=== PATIENT | male | born 1940 | race Caucasian/White ===

== ENCOUNTER 2016-07-18 10:27 | Outpatient (CLI) | payer MEDICARE, OTHER | END 2016-07-18 10:28 | disposition home or self-care (01) | DX: D68.9 Coagulation defect, unspecified (principal) ==

== ENCOUNTER 2016-08-30 12:54 | Outpatient (CLI) | payer MEDICARE, OTHER | END 2016-08-30 12:55 | disposition home or self-care (01) | DX: D68.9 Coagulation defect, unspecified (principal) ==

== ENCOUNTER 2017-01-25 13:05 | Outpatient (CLI) | payer MEDICARE, OTHER ==
[2017-01-25 18:58] LABS: THYROID STIMULATING HORMONE 0.89 uIU/mL (0.34-5.60)
[2017-01-25 19:36] LABS: HEMOGLOBIN A1C 0.59 g/dL
[2017-01-29 20:21] LABS: ALPHA 1 GLOBULIN 0.3 g/dL (0.2-0.3); ALPHA 2 GLOBULIN 0.6 g/dL (0.5-0.9); BETA 1 GLOBULIN 0.4 g/dL (0.4-0.6); BETA 2 GLOBULIN 0.2 g/dL (0.2-0.5); GAMMA GLOBULIN 0.6 g/dL (0.8-1.7)
[2017-01-29 23:56] LABS: TEST RESULT REPORT (())
== END 2017-01-25 13:06 | disposition home or self-care (01) ==
LOC: LAB.F 13:05
PROVIDERS: ATTEND Physician Assistant
DX: G61.89 Other inflammatory polyneuropathies (principal); E11.42 Type 2 diabetes mellitus with diabetic polyneuropathy; I77.6 Arteritis, unspecified; G60.3 Idiopathic progressive neuropathy; E03.8 Other specified hypothyroidism; E53.8 Deficiency of other specified B group vitamins
CPT/HCPCS: 36415; 81599; 82607; 83036; 84155; 84165; 84207; 84443; 85651; 86334

== ENCOUNTER 2017-05-09 08:10 | Outpatient (CLI) | payer MEDICARE, OTHER ==
[2017-05-09 10:52] LABS: PARTIAL THROMBOPLASTIN TIME 26.9 secs (24.9-33.3)
[2017-05-09 10:54] LABS: ALBUMIN/GLOBULIN RATIO 1.5 (1.0-2.2); BILIRUBIN,TOTAL 1.2 mg/dL (0.2-1.0); CALCIUM 9.7 mg/dL (8.5-10.3); CREATININE 1.1 mg/dL (0.6-1.2); POTASSIUM 3.8 mmol/L (3.5-5.0); TOTAL PROTEIN 7.4 g/dL (6.7-8.2)
[2017-05-09 11:21] LABS: FOLATE 7.63 ng/mL (5.90 - >24.8)
[2017-05-10 10:06] LABS: HOMOCYSTEINE 14.1 umol/L (<11.4)
[2017-05-11 16:27] LABS: TEST RESULT REPORT
[2017-05-13 20:31] LABS: TEST RESULT REPORT
[2017-05-14 23:01] LABS: TEST RESULT REPORT
[2017-05-15 00:18] LABS: TEST RESULT REPORT
== END 2017-05-09 08:11 | disposition home or self-care (01) ==
LOC: LAB.F 08:10 → LAB 08:11
PROVIDERS: ATTEND Family Medicine
DX: I26.99 Other pulmonary embolism without acute cor pulmonale (principal); D80.1 Nonfamilial hypogammaglobulinemia; E53.8 Deficiency of other specified B group vitamins
CPT/HCPCS: 36415; 80053; 81599; 82607; 82746; 82784; 83090; 83883; 85300; 85303; 85306; 85610; 85730; 86334

== ENCOUNTER 2018-01-03 10:48 | Outpatient (CLI) | payer MEDICARE, OTHER | END 2018-01-03 10:49 | disposition home or self-care (01) | LOC: LAB.F 10:48 | PROVIDERS: ATTEND Pathology Blood Banking & Transfusion Medicine | DX: D68.9 Coagulation defect, unspecified (principal); Z79.01 Long term (current) use of anticoagulants; I26.99 Other pulmonary embolism without acute cor pulmonale | CPT/HCPCS: 85610 ==

== ENCOUNTER 2018-01-23 22:06 | Outpatient (CLI) | payer MEDICARE, OTHER | END 2018-01-23 22:07 | disposition critical access hospital (66) | LOC: EMS 22:06 | PROVIDERS: ATTEND Surgery | DX: S01.01XA Laceration without foreign body of scalp, initial encounter (principal); W18.30XA Fall on same level, unspecified, initial encounter; Y92.008 Other place in unspecified non-institutional (private) residence as the place of occurrence of the external cause | CPT/HCPCS: A0425; A0429 ==

== ENCOUNTER 2018-01-23 22:41 | Emergency (ER) | payer MEDICARE, OTHER ==
--- NOTE | 2018-01-23 23:22 | ED Physician Documentation ---
PD HPI HEAD INJURY - Stated complaint Stated Complaint: FELL - HEAD LAC - Chief complaint Chief Complaint: Trauma Hd/Nk - History obtained from History obtained from: Patient, Family (spouse (in ED at bedside)) - History of Present Illness Mechanism of head injury: Fell Where head injury occurred: Home Timing - onset: Enter time (21:15), Today Pain level now: 3 Location of injury: Back, Top Quality of pain: Pain Associated symptoms: LOC (unwitnessed, but amnestic for event (see below)), Amnesia. No: Nausea / vomiting, Neck pain Symptoms improve with: Rest Symptoms worsen with: Palpation, Movement Contributing factors: Anticoagulated, Intoxicated Recently seen: Not recently seen - Additional information Additional information: patient was walking down hallway tonight, does not remember falling but found himself on the floor. His was in adjacent room, heard him fall, and immediately checked on him. She found him to be awake and alert; his pants were down and around his ankles although he had not yet reached the bathroom. He believes he hit his head against the wall. He was unable to stand up and his became frustrated because he insisted she not call 911. Patient was thus on ground for another hour before he then said he felt he could stand; went to help him and then noticed he was bleeding from a scalp laceration and she thus called 911. Patient was agreeable to transport to hospital, and he is calm, cooperative, and pleasant on my H+P. He had martinis tonight. Review of Systems Constitutional: reports: Reviewed and negative Eyes: reports: Reviewed and negative Ears: reports: Reviewed and negative Nose: reports: Reviewed and negative Throat: reports: Reviewed and negative Cardiac: reports: Reviewed and negative Respiratory: reports: Reviewed and negative GI: reports: Reviewed and negative : denies: Incontinent Skin: reports: Laceration (s) (scalp) Musculoskeletal: reports: Neck pain, Extremity pain (right arm). denies: Back pain Neurologic: reports: Focal weakness (right arm (he insists this is not new; has been recurrent for several weeks), Head injury, LOC. denies: Generalized weakness, Numbness, Confused, Altered mental status, Headache PD PAST MEDICAL HISTORY - Past Medical History Cardiovascular: Hypertension, High cholesterol Respiratory: None Neuro: CVA Endocrine/Autoimmune: None GI: None : None HEENT: None Psych: None Musculoskeletal: None Derm: None - Past Surgical History Past Surgical History: No Ortho: Spine surgery - Present Medications Home Medications: Ambulatory Orders Medication Instructions Recorded Confirmed Enoxaparin [Lovenox] 150 mg SUBQ Q12H 01/23/18 01/23/18 Lisinopril 10 mg PO 01/23/18 Propranolol [Inderal] 20 mg PO BID 01/23/18 01/23/18 Warfarin [Coumadin] 4 mg PO 1400 01/23/18 01/23/18 - Allergies Allergies/Adverse Reactions: Allergies Allergy/AdvReac Type Severity Reaction Status Date / Time niacin Allergy Rash Verified 01/23/18 22:50 Sulfa (Sulfonamide Allergy Rash Verified 01/23/18 22:50 Antibiotics) - Social History Does the pt smoke?: No Smoking Status: Never smoker Does the pt drink ETOH?: Yes ETOH Use: Liquor Does the pt have substance abuse?: Yes Substance Use and Type: Marijuana - Immunizations Immunizations are current?: Yes - POLST Patient has POLST: No PD ED PE NORMAL - Vitals Vital signs reviewed: Yes - General General: Alert and oriented X 3, No acute distress, Well developed/nourished - HEENT HEENT: PERRL, EOMI - Cardiac Cardiac: RRR, No murmur - Respiratory Respiratory: No respiratory distress, Clear bilaterally - Abdomen Abdomen: Soft, Non tender - Derm Derm: Normal color, Warm and dry - Extremities Extremities: No tenderness to palpate, No edema - Neuro Neuro: Alert and oriented X 3, woodworking belt sander 2-12 intact, No motor deficit, No sensory deficit, Normal speech Eye Opening: Spontaneous Motor: Obeys Commands Verbal: Oriented GCS Score: 15 PD ED PE EXPANDED - HEENT HEENT Visual: 1 - laceration (approximately 6" long laceration with scant bleeding) - Neck Neck: Bony TTP (midline/midlevel (cervical collar in place; limited exam through the opening in posterior aspect of c-collar)) - Extremities Extremities: Limited ROM (right shoulder limited in extension and abduction ( unclear if weakness or due to pain)) - Neuro Neuro: Normal reflexes (2+/4 bilateral DTR (patellar)) Results - Vitals Vitals: Vital Signs - 24 hr 01/23/18 01/23/18 01/24/18 22:45 23:04 00:01 Temperature 36.7 C Heart Rate 63 67 67 Respiratory 16 14 14 Rate Blood Pressure 173/92 H 149/85 H 159/98 H O2 Saturation 96 96 96 01/24/18 01/24/18 01/24/18 01:01 01:32 02:08 Temperature Heart Rate 66 69 76 Respiratory 20 15 16 Rate Blood Pressure 127/75 145/85 H 147/83 H O2 Saturation 95 95 95 01/24/18 01/24/18 03:02 04:37 Temperature 36.4 C L Heart Rate 75 85 Respiratory 14 14 Rate Blood Pressure 150/82 H 158/89 H O2 Saturation 96 99 Oxygen O2 Source Room air - Labs Labs: Laboratory Tests 01/23/18 01/23/18 01/23/18 23:58 23:58 23:58 WBC 11.2 H RBC 5.36 Hgb 15.9 Hct 47.5 MCV 88.6 MCH 29.6 MCHC 33.4 RDW 15.0 Plt Count 209 MPV 8.5 Neut # (Auto) 8.2 H Lymph # (Auto) 1.9 [place] # (Auto) 0.6 Eos # (Auto) 0.3 Baso # (Auto) 0.1 Absolute Nucleated RBC 0.00 Nucleated RBC % 0.0 PT 18.3 H INR 1.7 H APTT 33.4 H Sodium 140 Potassium 3.7 Chloride 106 Carbon Dioxide 27 Anion Gap 7.0 BUN 20 Creatinine 1.0 Estimated GFR (MDRD) 72 L Glucose 110 H Calcium 9.1 - Rads (name of study) CT head Radiology: Prelim report reviewed, See rad report CT cervical spine Radiology: Prelim report reviewed, See rad report PD MEDICAL DECISION MAKING - ED course Complexity details: reviewed results, re-evaluated patient, considered differential, d/w patient ED course: CT c-spine reveals fractures at C4 and C4-C5 level which, combined, are s/o unstable fracture. He has no new neurologic c/o (RUE as per HPI) and no weakness , numbness on exam of extremities, both initially as well as on reevaluation after CT scans resulted, except limited right shoulder extension and abduction ( unclear if this is due to weakness or pain). D/[place]. Macias [place] [place] [facility] [facility] [place] - Sepsis Event Vital Signs: Vital Signs - 24 hr 01/23/18 01/23/18 01/24/18 22:45 23:04 00:01 Temperature 36.7 C Heart Rate 63 67 67 Respiratory 16 14 14 Rate Blood Pressure 173/92 H 149/85 H 159/98 H O2 Saturation 96 96 96 01/24/18 01/24/18 01/24/18 01:01 01:32 02:08 Temperature Heart Rate 66 69 76 Respiratory 20 15 16 Rate Blood Pressure 127/75 145/85 H 147/83 H O2 Saturation 95 95 95 01/24/18 01/24/18 03:02 04:37 Temperature 36.4 C L Heart Rate 75 85 Respiratory 14 14 Rate Blood Pressure 150/82 H 158/89 H O2 Saturation 96 99 Oxygen O2 Source Room air Departure - Departure Disposition: 02 Transfer Acute Care Hosp Clinical Impression: Closed fracture of cervical vertebra Qualifiers: Encounter type: initial encounter Cervical vertebra fracture level: C4 Fracture morphology: unspecified fracture morphology Fracture alignment: nondisplaced Qualified Code(s): S12.301A - Unspecified nondisplaced fracture of fourth cervical vertebra, initial encounter for closed fracture Condition: Stable Discharge Date/Time: 01/24/18 04:44
[2018-01-24 00:10] LABS: BASOPHILS # (AUTO) 0.1 10^3/uL (0.0-0.1); BASOPHILS % (AUTO) 0.8 %; EOSINOPHILS # (AUTO) 0.3 10^3/uL (0.0-0.7); EOSINOPHILS % (AUTO) 2.6 %; HGB - HEMOGLOBIN 15.9 g/dL (14.0-18.0); LYMPHOCYTES # (AUTO) 1.9 10^3/uL (1.5-3.5); LYMPHOCYTES % (AUTO) 17.4 %; MEAN CORPUSCULAR HEMOGLOBIN 29.6 pg (27.0-31.0); MEAN CORPUSCULAR HGB CONC 33.4 g/dL (32.0-36.0); MEAN CORPUSCULAR VOLUME 88.6 fL (80.0-94.0); MEAN PLATELET VOLUME 8.5 fL (7.4-11.4); MONOCYTES # (AUTO) 0.6 10^3/uL (0.0-1.0); MONOCYTES % (AUTO) 5.4 %; NEUTROPHILS # (AUTO) 8.2 10^3/uL (1.5-6.6); NEUTROPHILS % (AUTO) 73.8 %; PLT - PLATELET COUNT 209 10^3/uL (130-450); RED BLOOD COUNT 5.36 10^6/uL (4.70-6.10); WHITE BLOOD COUNT 11.2 x10^3/uL (4.8-10.8)
[2018-01-24 00:19] LABS: INR 1.7 (0.8-1.2); PT - PROTHROMBIN TIME 18.3 secs (9.9-12.6)
[2018-01-24 00:32] LABS: CALCIUM 9.1 mg/dL (8.5-10.3)
--- NOTE | 2018-01-24 02:01 | CT Report ---
Procedure Date: 01/24/2018 Accession Number: [id number] / [id number] Procedure: CT - Cervical Spine W/O CPT Code: FULL RESULT: EXAM: CT CERVICAL SPINE WITHOUT CONTRAST DATE: 01/24/2018 01:22 AM. HISTORY: Fall, neck pain. COMPARISONS: None. TECHNIQUE: Thin-section axial images were acquired of the cervical spine without contrast. Post-processing: Coronal and sagittal reformats. Other: None. In accordance with CT protocol optimization, one or more of the following dose reduction techniques were utilized for this exam: automated exposure control, adjustment of mA and/or KV based on patient size, or use of iterative reconstructive technique. FINDINGS: Alignment: Straightening of the cervical lordosis. Instrumented ACDF at C3-C4 and C6-C7. These are contiguous with a non-instrumented ACDF at C4-C5 and C5-C6. 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 There is a minimally offset fracture seen involving the spinous process and right lamina of C4. There is also a nondisplaced fracture through the ankylosed spine at about the level of the fused C4-C5 disk space. 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 There is severe bilateral foraminal stenosis at C3-C4, C4-C5, C5-C6, C6-C7 and C7-T1.. Musculature: Normal. No fatty atrophy. Other: The paravertebral and prevertebral soft tissues are unremarkable. The lung apices are clear. IMPRESSION: Instrumented ACDF at C3-C4 and C6-C7. These are contiguous with a non-instrumented ACDF at C4-C5 and C5-C6. 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 There is severe bilateral foraminal stenosis at C3-C4, C4-C5, C5-C6, C6-C7 and C7-T1 There is a minimally offset fracture seen involving the spinous process and right lamina of C4. There is also a nondisplaced fracture through the ankylosed spine at about the level of the fused C4-C5 disk space. Fracture through an ankylosed spine is likely an unstable injury. RADIA The above findings were discussed with Dionicio Smith by Dr. Frandy Romero at 01:59 hrs on 01/24/18.
--- NOTE | 2018-01-24 02:07 | CT Report ---
Procedure Date: 01/24/2018 Accession Number: [id number] / [id number] Procedure: CT - Head W/O CPT Code: FULL RESULT: EXAM: CT HEAD EXAM DATE: 01/24/2018 01:25 AM. CLINICAL HISTORY: Fall, head injury, on warfarin. COMPARISON: 11/28/2010. TECHNIQUE: Multiaxial CT images were obtained from the foramen magnum to the vertex. Reformats: Sagittal and coronal. IV contrast: None. In accordance with CT protocol optimization, one or more of the following dose reduction techniques were utilized for this exam: automated exposure control, adjustment of mA and/or KV based on patient size, or use of iterative reconstructive technique. FINDINGS: CSF spaces are diffusely prominent in keeping with the patient's age. This is significantly more pronounced than in 2010. Small area of encephalomalacia right temporal pole, present on the prior study. Interval development of encephalomalacia of the left frontal pole, associated with ex vacuo dilatation of the left frontal horn. This is new. Occupying lesion, recent hemorrhage, extracerebral fluid collection or hydrocephalus. Hyperdense appearance to the left ICA terminus is likely related to calcification in the absence of acute left hemisphere ischemic symptoms. Skull base, imaged paranasal sinuses, mastoids and calvarium appear unremarkable. Extracranial soft tissue swelling over the left convexity near the vertex. IMPRESSION: 1. Interval progression of volume loss since 2010. 2. Small, old area of encephalomalacia right temporal lobe, unchanged. 3. Encephalomalacia left frontal pole, new since 2010. 4. Overall, findings suggest the sequela of trauma. 5. No acute intracranial process identified. No evidence of recent intracranial hemorrhage. RADIA
[2018-01-24 04:39] VITALS: BP 158/89
== END 2018-01-24 04:44 | disposition short-term general hospital (02) ==
LOC: EDUNIT# → ED 22:41
DX: S12.301A Unspecified nondisplaced fracture of fourth cervical vertebra, initial encounter for closed fracture (principal); I10 Essential (primary) hypertension; Z79.01 Long term (current) use of anticoagulants; W01.198A Fall on same level from slipping, tripping and stumbling with subsequent striking against other object, initial encounter; Y92.009 Unspecified place in unspecified non-institutional (private) residence as the place of occurrence of the external cause
CPT/HCPCS: 36415; 70450; 72125; 80048; 85025; 85610; 85730; 99284; 99285

== ENCOUNTER 2018-01-24 04:50 | Outpatient (CLI) | payer MEDICARE, OTHER | END 2018-01-24 04:51 | disposition short-term general hospital (02) | LOC: EMS 04:50 | PROVIDERS: ATTEND Surgery | DX: S12.300A Unspecified displaced fracture of fourth cervical vertebra, initial encounter for closed fracture (principal); W18.30XA Fall on same level, unspecified, initial encounter | CPT/HCPCS: A0170; A0425; A0426 ==

== ENCOUNTER 2018-02-25 12:33 | Outpatient (CLI) | payer MEDICARE, OTHER | END 2018-02-25 12:34 | disposition home or self-care (01) | LOC: LAB.F 12:33 | PROVIDERS: ATTEND Nurse Practitioner Family | DX: D68.9 Coagulation defect, unspecified (principal) | CPT/HCPCS: 85610 ==

== ENCOUNTER 2019-01-08 08:55 | Outpatient (CLI) | payer MEDICARE, OTHER ==
[2019-01-08 17:20] LABS: BASOPHILS # (AUTO) 0.1 10^3/uL (0.0-0.1); BASOPHILS % (AUTO) 1.2 %; EOSINOPHILS # (AUTO) 0.2 10^3/uL (0.0-0.7); EOSINOPHILS % (AUTO) 3.7 %; LYMPHOCYTES # (AUTO) 2.2 10^3/uL (1.5-3.5); LYMPHOCYTES % (AUTO) 36.9 %; MEAN CORPUSCULAR HEMOGLOBIN 28.3 pg (27.0-31.0); MEAN CORPUSCULAR HGB CONC 31.5 g/dL (32.0-36.0); MEAN CORPUSCULAR VOLUME 89.8 fL (80.0-94.0); MEAN PLATELET VOLUME 11.8 fL (7.4-11.4); MONOCYTES # (AUTO) 0.5 10^3/uL (0.0-1.0); MONOCYTES % (AUTO) 8.9 %; NEUTROPHILS # (AUTO) 2.9 10^3/uL (1.5-6.6); NEUTROPHILS % (AUTO) 49.1 %; PLT - PLATELET COUNT 212 10^3/uL (130-450); RED CELL DISTRIBUTION WIDTH 13.7 % (12.0-15.0); WHITE BLOOD COUNT 5.9 x10^3/uL (4.8-10.8)
[2019-01-08 17:24] LABS: PARTIAL THROMBOPLASTIN TIME 35.5 secs (24.9-33.3)
[2019-01-08 17:31] LABS: ALBUMIN/GLOBULIN RATIO 1.7 (1.0-2.2); BILIRUBIN,TOTAL 1.1 mg/dL (0.2-1.0); CALCIUM 9.4 mg/dL (8.5-10.3); CREATININE 0.9 mg/dL (0.6-1.2); TOTAL PROTEIN 6.4 g/dL (6.7-8.2)
[2019-01-08 17:36] LABS: BILIRUBIN,URINE NEGATIVE (NEGATIVE); GLUCOSE, URINE (UA) NEGATIVE (NEGATIVE); KETONES,URINE (UA) NEGATIVE (NEGATIVE); LEUKOCYTE ESTERASE, URINE NEGATIVE (NEGATIVE); NITRITE,URINE NEGATIVE (NEGATIVE); OCCULT BLOOD,URINE NEGATIVE (NEGATIVE); PH,URINE 5.5 PH (5.0-7.5); PROTEIN,URINE NEGATIVE (NEGATIVE); UROBILINOGEN,URINE 0.2 (NORMAL) E.U./dL (NORMAL)
[2019-01-08 17:39] LABS: INR 1.8 (0.8-1.2); PT - PROTHROMBIN TIME 20.3 secs (9.9-12.6)
[2019-01-08 17:44] LABS: AMORPHOUS SEDIMENT,UR Marked /LPF; BACTERIA,URINE None Seen /HPF (None Seen); CLARITY,URINE HAZY (CLEAR); RBC,URINE None Seen /HPF (0-5); SQUAMOUS EPITHELIAL CELL,UR NONE SEEN (<= Few)
== END 2019-01-08 08:56 | disposition home or self-care (01) ==
LOC: LAB.S 08:55
DX: I10 Essential (primary) hypertension (principal); I48.0 Paroxysmal atrial fibrillation; G43.909 Migraine, unspecified, not intractable, without status migrainosus; Z79.01 Long term (current) use of anticoagulants; Z79.899 Other long term (current) drug therapy
CPT/HCPCS: 36415; 80053; 81001; 85025; 85610; 85730; 87086

== ENCOUNTER 2020-06-18 08:00 | Outpatient (CLI) | payer MEDICARE, OTHER ==
--- NOTE | 2020-06-18 16:23 | XRAY Report ---
PROCEDURE: Abdomen 1 View X-Ray INDICATIONS: ABDOMINAL PAIN TECHNIQUE: 1 view of the abdomen were acquired. COMPARISON: None. FINDINGS: Surgical changes and devices: IVC filter. Clip in the right pelvis. Bowel: No pneumoperitoneum. Prominent stool in the colon. Soft tissues: No masses; visualized solid organ contours appear normal in size. No suspicious abdom inal calcifications. Bones: No suspicious bony abnormalities. IMPRESSION: Prominent stool the colon. This could be due to constipation. If concern for occult inflammatory process consider CT abdomen pelvis with IV contrast. Reviewed by: Jefry Lucas MD on 06/18/2020 3:[address] [facility] Approved by: Jefry Lucas MD on 06/18/2020 3:[address] [facility] Station ID: [id number]
== END 2020-06-18 23:59 ==
LOC: DI.S 08:00
PROVIDERS: ATTEND Physician Assistant Medical
DX: R10.9 Unspecified abdominal pain (principal)

== ENCOUNTER 2020-06-18 17:21 | Emergency (ER) | payer MEDICARE, OTHER ==
[2020-06-18 17:28] VITALS: BP 164/137
[2020-06-18] MEDS ORDERED: MINERAL OIL ENEMA 133 ML BOTTLE RC STA (17:42)
--- NOTE | 2020-06-18 18:03 | ED Physician Documentation ---
History of Present Illness - Stated complaint Stated Complaint: NAUSEA,CONSTIPATION - Chief complaint Chief Complaint: Abd Pain - History obtained from History obtained from: Patient - History of Present Illness Timing: Today Pain level max: 5 Pain level now: 4 - Additonal information Additional information: 80-year-old male presents to the emergency department constipation for the last several days. He states he attempted to have a bowel movement at home, but was unsuccessful. He went to the walk-in clinic today where they attempted to manually disimpact him, but they state that they could not remove the stool from the rectum. He has had no vomiting. No fevers. All of the pain is in the rectal area. Last bowel movement was several days ago Patient states that this occurs about 1 time per year. Review of Systems Constitutional: denies: Fever, Chills GI: denies: Vomiting : denies: Dysuria Skin: denies: Rash Musculoskeletal: denies: Neck pain, Back pain Neurologic: denies: Headache PD PAST MEDICAL HISTORY - Past Medical History Cardiovascular: Hypertension, High cholesterol Respiratory: None Neuro: CVA Endocrine/Autoimmune: None GI: None : None HEENT: None Psych: None Musculoskeletal: None Derm: None - Past Surgical History Past Surgical History: No Ortho: Spine surgery - Present Medications Home Medications: Ambulatory Orders Medication Instructions Recorded Confirmed Enoxaparin [Lovenox] 150 mg SUBQ Q12H 01/23/18 01/23/18 Propranolol [Inderal] 20 mg PO BID 01/23/18 01/23/18 Warfarin [Coumadin] 4 mg PO 1400 01/23/18 01/23/18 lisinopriL [Lisinopril] 10 mg PO 01/23/18 - Allergies Allergies/Adverse Reactions: Allergies Allergy/AdvReac Type Severity Reaction Status Date / Time niacin Allergy Rash Verified 06/18/20 17:27 Sulfa (Sulfonamide Allergy Rash Verified 06/18/20 17:27 Antibiotics) - Social History Does the pt smoke?: No Smoking Status: Never smoker Does the pt drink ETOH?: Yes Does the pt have substance abuse?: Yes - Immunizations Immunizations are current?: Yes - POLST Patient has POLST: No PD ED PE NORMAL - Vitals Vital signs reviewed: Yes - General General: Alert and oriented X 3, No acute distress - HEENT HEENT: Moist mucous membranes - Neck Neck: Supple, no meningeal sign - Cardiac Cardiac: RRR - Respiratory Respiratory: No respiratory distress, Clear bilaterally - Abdomen Abdomen: Soft, Non tender, Non distended - Derm Derm: Warm and dry - Neuro Neuro: Alert and oriented X 3 - Psych Psych: Normal mood, Normal affect Results - Vitals Vitals: Vital Signs - 24 hr 06/18/20 17:24 Temperature 35.9 C L Heart Rate 58 L Blood Pressure 164/137 H O2 Saturation 99 Oxygen O2 Source Room air PD MEDICAL DECISION MAKING - ED course Complexity details: re-evaluated patient, considered differential, d/w patient, d/w family ED course: Patient given enemas and oral CT contrast to help with his constipation. His KUB from the walk-in clinic also is consistent with constipation. Large stool in the rectal vault. Patient had a large bowel movement and feels better. We will have him follow-up with his doctor for further care. Patient counseled regarding signs and symptoms for which I believe and urgent re-evaluation would be necessary. Patient with good understanding of and agreement to plan and is comfortable going home at this time This document was made in part using voice recognition software. While efforts are made to proofread this document, sound alike and grammatical errors may occur. Departure - Departure Disposition: 01 Home, Self Care Clinical Impression: Constipation Qualifiers: Constipation type: unspecified constipation type Qualified Code(s): K59.00 - Constipation, unspecified Condition: Good Instructions: ED Constipation Follow-Up: Your,doctor in 1 week [Other] Comments: Follow-up with your doctor for further care. Return if you worsen.
[2020-06-18] MEDS ORDERED: DIATR MEGLU/DIATRIZOATE SODIUM 120 ML BOTTLE PO ONE (18:07)
[2020-06-18] MEDS ORDERED: IOVERSOL 320 100 ML VIAL IVP ONE (18:32)
[2020-06-18] MEDS ORDERED: IOVERSOL 320 50 ML VIAL PO ONE (18:47)
--- OUTSIDE RECORDS SUMMARY | 2020-06-22 01:53 | EXTERNAL MEDICAL SUMMARY RPT | Continuity of Care Document ---
:1940 Demographics Phone Unavailable Preferred Language Khmer Marital Status Unknown Islam Affiliation Unknown Race Unknown Ethnic Group Unknown Author Organization [place] Address [address] [phone] Phone Care Team Providers Name Role Phone Provider Unavailable Unavailable Lower Unavailable Unavailable WOOD Unavailable Unavailable PA-C Unavailable Unavailable Registrar Unavailable Unavailable Problems date description facility 2016-07-18 10:27 COAGULATION DEFECT, UNSPECIFIED [facility] 2016-08-30 12:54 COAGULATION DEFECT, UNSPECIFIED [facility] 2017-01-25 13:05 OTHER SPECIFIED HYPOTHYROIDISM [facility] 2017-01-25 13:05 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 POLYNEUROPATHIES 2017-01-25 13:05 ARTERITIS, UNSPECIFIED [facility] 2018-01-23 22:41 ESSENTIAL (PRIMARY) HYPERTENSION [facility] 2018-01-23 22:41 LACERATION WITHOUT FOREIGN BODY [facility] OF SCALP, INITIAL ENCOUNTER 2018-01-23 22:41 UNSP NONDISP FX OF FOURTH [facility] CERVICAL VERTEBRA, INIT 2018-01-23 22:41 FALL SAME LEV FROM SLIP/TRIP W [facility] STRIKE AGNST OTH OBJECT, INIT 2018-01-23 22:[address] IN UNSP NON-INSTITUT [facility] (PRIVATE) RESIDENCE PLACE 2018-01-23 22:41 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 ANTICOAGULANTS 2018-02-25 12:33 COAGULATION DEFECT, UNSPECIFIED [facility] 2019-01-08 08:55 MIGRAINE, UNSP, NOT INTRACTABLE, [facility] WITHOUT STATUS MIGRAINOSUS 2019-01-08 08:55 ESSENTIAL (PRIMARY) HYPERTENSION [facility] 2019-01-08 08:55 PAROXYSMAL ATRIAL FIBRILLATION [facility] 2019-01-08 08:55 JAIL (CURRENT) USE OF [facility] ANTICOAGULANTS 2019-01-08 08:55 OTHER JAIL (CURRENT) DRUG [facility] THERAPY 2020-06-18 00:00:00 Abdominal pain, unspecified site [facility] Thuy morton 2020-06-18 00:00:00 X-RAY EXAM ABDOMEN 1 VIEW [facility] Th[facility] morton 2020-06-18 00:00:00 Fecal impaction [facility] C selene 2020-06-18 00:00:00 Abdominal pain [facility] Thuy morton 2020-06-18 00:00:00 Health-related behavior [facility] Thuy morton 2020-06-18 00:00:00 Exercise [facility] Thuy morton 2020-06-18 00:00:00 Tobacco smoking status NHIS [facility] Thuy morton 2020-06-18 00:00:00 Unspecified abdominal pain [facility] Thuy morton Allergies date description facility NO KNOWN ENVIRONMENTAL ALLERGIES [facility] SULFA (SULFONAMIDE ANTIBIOTICS) [facility] PERTUSSIS VACCINES [facility] NO KNOWN ALLERGIES [facility] MORPHINE [facility] BEESWAX [facility] CEPHALEXIN [facility] FENTANYL [facility] MEPERIDINE [facility] Sulfa (Sulfonamide Antibiotics) [facility] NO KNOWN ALLERGIES [facility] Sulfa (Sulfonamide Antibiotics) [facility] Sulfa (Sulfonamide Antibiotics) [facility] CODEINE [facility] LATEX [facility] ADHESIVE TAPE-SILICONES [facility] Social History date description facility [id number]
== END 2020-06-18 19:20 | disposition home or self-care (01) ==
LOC: ED 17:21
DX: K59.00 Constipation, unspecified (principal); I10 Essential (primary) hypertension; Z86.73 Personal history of transient ischemic attack (TIA), and cerebral infarction without residual deficits; Z79.01 Long term (current) use of anticoagulants
CPT/HCPCS: 99282; 99284; A9270; Q9963; Q9967

== ENCOUNTER 2020-11-23 06:45 | Outpatient (CLI) | payer MEDICARE, OTHER | END 2020-11-23 06:46 | disposition critical access hospital (66) | LOC: EMS 06:45 | DX: R10.9 Unspecified abdominal pain (principal); R33.9 Retention of urine, unspecified; K59.00 Constipation, unspecified | CPT/HCPCS: A0425; A0429 ==

== ENCOUNTER 2020-11-23 07:20 | Emergency (ER) | payer MEDICARE, OTHER ==
--- NOTE | 2020-11-23 07:28 | ED Physician Documentation ---
PD HPI ABD PAIN - Stated complaint Stated Complaint: CONSTIPATION - Chief complaint Chief Complaint: Abd Pain - History obtained from History obtained from: Patient, EMS - History of Present Illness Timing - onset: Last night Timing - duration: Weeks (has not had BM for a week, with small nuggets out only. Since last night, has not been able to urinate. Pain in suprapubic area this morning with fullness.) Quality: Cramping, Aching, Pain Location: Suprapubic Radiation: No: Lower back, Left flank, Right flank Associated symptoms: Nausea, Constipation (for a week). No: Fever, Vomiting, Diarrhea Similar symptoms before: Has not had sx before Recently seen: Surgery (had colonscopy 11/10/20 (with prep prior to it successfully and not significant findings on the scope). No real BM since the cleansing.) Review of Systems Constitutional: denies: Fever, Chills Nose: denies: Rhinorrhea / runny nose, Congestion Throat: denies: Sore throat : reports: Unable to Void. 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 ) - Present Medications Home Medications: Ambulatory Orders Medication Instructions Recorded Confirmed lisinopriL [Lisinopril] 10 mg PO DAILY 01/23/18 11/23/20 Apixaban [Eliquis] 2.5 mg PO BID 11/23/20 11/23/20 Atorvastatin Calcium 40 mg PO DAILY 11/23/20 11/23/20 Levetiracetam [Keppra] 500 mg PO BID 11/23/20 11/23/20 - Allergies Allergies/Adverse Reactions: Allergies Allergy/AdvReac Type Severity Reaction Status Date / Time niacin Allergy Rash Verified 11/23/20 07:27 Sulfa (Sulfonamide Allergy Rash Verified 11/23/20 07:27 Antibiotics) - Social History Does the pt smoke?: No Smoking Status: Never smoker Does the pt drink ETOH?: Yes Does the pt have substance abuse?: Yes - Immunizations Immunizations are current?: Yes - POLST Patient has POLST: No PD ED PE NORMAL - Vitals Vital signs reviewed: Yes - General General: Alert and oriented X 3, Well developed/nourished, Other (appears very uncomfortable due to lower abd fullness/cramping. ) - Neck Neck: Supple, no meningeal sign, No bony TTP - Cardiac Cardiac: RRR (mild bradycardia), No murmur - Respiratory Respiratory: Clear bilaterally - Abdomen Abdomen: Soft, Non tender, Other (fullness in suprapubic area c/w full bladder. Upper abd not tender. ) - Male Male : Other (externally normal without rash nor sores. ) - Rectal Rectal: Other (some stoop in vault about tennis ball but not firm per se. Fingertip breaking it up. ) - Back Back: No CVA TTP - Derm Derm: Normal color, Warm and dry - Neuro Neuro: Alert and oriented X 3, No motor deficit, Normal speech Results - Vitals Vitals: Vital Signs - 24 hr 11/23/20 11/23/20 11/23/20 07:22 07:59 09:42 Temperature 36.3 C L Heart Rate 55 L 56 L 52 L Respiratory 23 22 19 Rate Blood Pressure 160/95 H 176/89 H 161/77 H O2 Saturation 100 100 99 11/23/20 10:07 Temperature 36.8 C Heart Rate 54 L Respiratory 19 Rate Blood Pressure 170/80 H O2 Saturation 95 Oxygen O2 Source Room air - Labs Labs: Laboratory Tests 11/23/20 08:00 Urine Color YELLOW Urine Clarity CLEAR Urine pH 6.0 Ur Specific [place] 1.020 Urine Protein NEGATIVE Urine Glucose (UA) NEGATIVE Urine Ketones NEGATIVE Urine Occult Blood NEGATIVE Urine Nitrite NEGATIVE Urine Bilirubin NEGATIVE Urine Urobilinogen 0.2 (NORMAL) Ur Leukocyte Esterase NEGATIVE Ur Microscopic Review NOT INDICATED Urine Culture Comments NOT INDICATED PD MEDICAL DECISION MAKING - ED course Complexity details: reviewed results (Bladder scan c/w retention. Zuniga got out about 800 ml and patient feeling improved. Abd exam without focal tenderness. I do not see indication/concern for CT. ), considered differential (does not have prostate. has urinary retention and could be impacted by some stool in vault. Otherwise will check for UTI. No new meds so unlikely cause. ), d/w patient Departure - Departure Disposition: 01 Home, Self Care Clinical Impression: Acute urinary retention Constipation Qualifiers: Constipation type: unspecified constipation type Qualified Code(s): K59.00 - Constipation, unspecified Condition: Stable Record reviewed to determine appropriate education?: Yes Instructions: ED Retention Urinary Male Comments: Its not clear the cause of your urinary retention today. It may be contributed by some constipation and rectal fullness. Continue with the new stool softener prescribed by your GI. Stay well-hydrated. For now we will leave the catheter in place for several days and see if conditions improve so that you are more likely to have urine output when it is removed. Follow-up in several days for recheck and likely catheter removal. This would best to be earlier in the day so that if you do have problems with retention you would have to come back in the middle the night per se. Discharge Date/Time: 11/23/20 10:07
[2020-11-23 08:08] LABS: BILIRUBIN,URINE NEGATIVE (NEGATIVE); GLUCOSE, URINE (UA) NEGATIVE (NEGATIVE); KETONES,URINE (UA) NEGATIVE (NEGATIVE); LEUKOCYTE ESTERASE, URINE NEGATIVE (NEGATIVE); NITRITE,URINE NEGATIVE (NEGATIVE); OCCULT BLOOD,URINE NEGATIVE (NEGATIVE); PROTEIN,URINE NEGATIVE (NEGATIVE); UROBILINOGEN,URINE 0.2 (NORMAL) E.U./dL (NORMAL)
[2020-11-23 08:09] LABS: CLARITY,URINE CLEAR (CLEAR)
[2020-11-23] MEDS ORDERED: MINERAL OIL ENEMA 133 ML BOTTLE RC STA (08:24)
[2020-11-23 10:10] VITALS: BP 170/80
== END 2020-11-23 10:07 | disposition home or self-care (01) ==
LOC: EDUNIT# → ED 07:20
DX: R33.9 Retention of urine, unspecified (principal); K59.00 Constipation, unspecified; I10 Essential (primary) hypertension
CPT/HCPCS: 51702; 51798; 81003; 99283; 99284; A9270; 81001; 87086

== ENCOUNTER 2020-11-24 08:00 | Outpatient (CLI) | payer MEDICARE, OTHER ==
--- NOTE | 2020-11-24 13:55 | XRAY Report ---
PROCEDURE: Abdomen 2 View X-Ray INDICATIONS: ABDOMINAL PAIN TECHNIQUE: 2 views of the abdomen were acquired. COMPARISON: None FINDINGS: Surgical changes and devices: None. Bowel: No pneumoperitoneum. The bowel gas pattern demonstrates increased stool and air throughout t he colon consistent with constipation. No free air, pneumatosis, or portal venous gas. An IVC filter is seen. Soft tissues: No masses; visualized solid organ contours appear normal in size. No suspicious abdom inal calcifications. Bones: No suspicious bony abnormalities. IMPRESSION: 1. Constipation. 2. No acute plain film abnormality. Reviewed by: Fabian Orozco on 11/24/2020 1:54 PM PDT Approved by: Fabian Orozco on 11/24/2020 1:54 PM PDT Station ID: [id number]
== END 2020-11-24 23:59 | disposition home or self-care (01) ==
LOC: DI.S 08:00
PROVIDERS: ATTEND Physician Assistant Medical
DX: K59.00 Constipation, unspecified (principal)

== ENCOUNTER 2021-03-28 08:17 | Outpatient (CLI) | payer MEDICARE, OTHER ==
[2021-03-28 15:13] LABS: BASOPHILS # (AUTO) 0.1 10^3/uL (0.0-0.1); BASOPHILS % (AUTO) 1.2 %; EOSINOPHILS # (AUTO) 0.3 10^3/uL (0.0-0.7); EOSINOPHILS % (AUTO) 4.4 %; HCT - HEMATOCRIT 49.7 % (42.0-52.0); HGB - HEMOGLOBIN 15.5 g/dL (14.0-18.0); LYMPHOCYTES # (AUTO) 2.4 10^3/uL (1.5-3.5); LYMPHOCYTES % (AUTO) 34.3 %; MEAN CORPUSCULAR HEMOGLOBIN 28.7 pg (27.0-31.0); MEAN CORPUSCULAR HGB CONC 31.2 g/dL (32.0-36.0); MEAN PLATELET VOLUME 10.4 fL (7.4-11.4); MONOCYTES # (AUTO) 0.5 10^3/uL (0.0-1.0); MONOCYTES % (AUTO) 7.8 %; NEUTROPHILS # (AUTO) 3.6 10^3/uL (1.5-6.6); NEUTROPHILS % (AUTO) 52.2 %; PLT - PLATELET COUNT 262 10^3/uL (130-450); RED CELL DISTRIBUTION WIDTH 13.4 % (12.0-15.0); WHITE BLOOD COUNT 6.9 x10^3/uL (4.8-10.8)
[2021-03-28 15:44] LABS: ALBUMIN 4.3 g/dL (3.2-5.5); ALBUMIN/GLOBULIN RATIO 1.9 (1.0-2.2); ALKALINE PHOSPHATASE 54 IU/L (42-121); ALT ALANINE AMINOTRANSFERASE 32 IU/L (10-60); AST ASPARTATE AMINOTRANSFERASE 24 IU/L (10-42); BILIRUBIN,TOTAL 0.9 mg/dL (0.2-1.0); BUN - BLOOD UREA NITROGEN 14 mg/dL (6-20); CALCIUM 9.1 mg/dL (8.5-10.3); CARBON DIOXIDE - CO2 28 mmol/L (21-32); CHLORIDE 103 mmol/L (101-111); CHOL/HDL RATIO 3.5 (<5.0); CHOLESTEROL 116 mg/dL; GFR - MDRD 72 (>89); GLUCOSE 103 mg/dL (70-100); HDL CHOLESTEROL 33 mg/dL; LDL CHOLESTEROL,CALCULATED 72 mg/dL; LDL/HDL RATIO 2.2 (<3.6); POTASSIUM 3.9 mmol/L (3.5-5.0); SODIUM 140 mmol/L (135-145); TOTAL PROTEIN 6.6 g/dL (6.7-8.2); TRIGLYCERIDES 54 mg/dL; VLDL CHOLESTEROL 11 mg/dL
== END 2021-03-28 08:18 | disposition home or self-care (01) ==
LOC: LAB.S 08:17
PROVIDERS: ATTEND Internal Medicine
DX: I10 Essential (primary) hypertension (principal); E78.5 Hyperlipidemia, unspecified
CPT/HCPCS: 36415; 80053; 80061; 83721; 85025